=== PATIENT | female | born 1995 | race Caucasian/White ===

== ENCOUNTER → 2017-03-22 | Outpatient (CLI) | payer BC ==
[~2017-03-22] MED LIST: ALBU1AER9 INH; AMPH20TA2 PO; BCPILLS PO; BECL0.3A INH; BUPR-79 PO; DOXY50TA2 PO; FEXO1TAB49 PO; PARO10TA PO; SPIR25TA89 PO
[2017-03-22 17:29] LABS: HEMATOCRIT 34.1 % (37-47); MEAN CORPUSCULAR HEMOGLOBIN 32.2 pg (25-34); MEAN CORPUSCULAR HGB CONC 35.8 g/dl (32-36); MEAN PLATELET VOLUME 9.9 fL (7.4-10.4); PLATELET COUNT 177 K/uL (130-400); RED BLOOD COUNT 3.79 M/uL (4.2-5.4); WHITE BLOOD COUNT 5.86 K/uL (4.8-10.8)
[2017-03-22 17:57] LABS: BASO % 0.5 %; BASO ABS # 0.03 K/uL (0-0.2); COMPLETE YES; EOS % 1.5 %; IG% 0.2 %; LYMPH % 30.7 %; MONO % 6.7 %; NEUT % 60.4 %
[2017-03-22 18:02] LABS: ALT/SGPT 20 U/L (12-78); BLOOD UREA NITROGEN 16 mg/dl (7-18); BUN/CREATININE RATIO 21.9 (10-20); C-REACTIVE PROTEIN 0.43 mg/dl (0-0.29); CARBON DIOXIDE 27 mmol/L (21-32); CHLORIDE 104 mmol/L (98-107); CREATININE 0.73 mg/dl (0.60-1.20); GLUCOSE 79 mg/dl (70-99); POTASSIUM 3.8 mmol/L (3.5-5.1); SODIUM 142 mmol/L (136-145)
[2017-03-22 18:04] LABS: CALCIUM 9.7 mg/dl (8.5-10.1)
[2017-03-22 18:13] LABS: ALB/GLOB RATIO 1.2 (0.9-2); ALKALINE PHOSPHATASE 51 U/L (45-117); AST/SGOT 15 U/L (15-37)
[2017-03-25 22:39] LABS: IGA SERUM 162 mg/dL (81-463); TIS TRANS IGA 1 U/mL (<4)
== END | disposition home or self-care (01) ==
LOC: C.LAB1850 16:35
PROVIDERS: ATTEND Registered Nurse
DX: R19.8 Other specified symptoms and signs involving the digestive system and abdomen (principal); R63.4 Abnormal weight loss

== ENCOUNTER → 2017-06-11 | Day surgery (SDC) | payer BC ==
[2017-06-07 09:49] VITALS: Ht 170.2 cm; Wt 52.3 kg
[~2017-06-11] VITALS: Ht 170.2 cm; Wt 52.3 kg
[~2017-06-11] MED LIST changes: -BECL0.3A INH; +LIDOCAINE HCL 2% 2 ML VIAL (20MG/ML) ONE; +LORAZEPAM INJ 0.5 MG in SYRINGE 0.25 ML IV SCH; +MIDAZOLAM HCL 1 MG/ML 2ML VIAL ONE; -PARO10TA PO; +PROPOFOL IV EMULSION 10 MG/ML 20 ML VIAL IV ONE; +SODIUM CHLORIDE 0.9% 500ML 500 ML IV ONE
--- NOTE | 2017-06-11 08:45 | Endo History and Physical ---
History & Physical Date of Service: Jun 11, 2017. Chief Complaint: Weight loss and abdominal cramping Referring Physician: HI Greene History of Present Illness 21 yo CF who presents for colonoscopy secondary to abdominal cramping and weight loss. Past Surgical History Hx Cardiac Surgery: No Hx Internal Defibrillator: No Hx Pacemaker: No Hx Abdominal Surgery: No Hx of Implantable Prosthesis: No Hx Post-Op Nausea and Vomiting: No Hx Cancer Surgery: No Hx Thoracic Surgery: No Hx Orthopedic: No Hx Urinary Tract Surgery: No Family History None Social History Smoking Status: Never Smoker Hx Substance Use: No Hx Alcohol Use: Yes (OCCASIONAL/SOCIAL) Allergies Coded Allergies: Dust Mite Extract (Verified Allergy, Unknown, respiratory sx, 06/11/17) NO KNOWN DRUG ALLERGIES (Verified Allergy, Unknown, ., 06/07/17) Current Medications Reported Home Medications Medications Dose Route/Sig Max Daily Dose Days Date Category Stormy Allergy (Fexofenadine Hcl) 180 Mg Tab 1 Tab PO DAILY PRN 06/07/17 Reported Control Pills (Miscellaneous) Tab 1 Tab PO QAM 06/07/17 Reported Adderall 20MG (Amphetamine-Dextroamphetamine 20MG) 1 Tab Tab 20 Mg PO TID 06/07/17 Reported Aldactone (Spironolactone) 25 Mg Tab 25 Mg PO QAM 06/07/17 Reported Wellbutrin Sr (Bupropion HCl) 150 Mg Ertab 150 Mg PO QAM 06/07/17 Reported Doxycycline Monohydrate (Doxycycline (Monohydrate)) 50 Mg Tab 1 Tab PO QAM 06/07/17 Reported Proair Hfa (Albuterol) Aers 2 Puff INH Q4 PRN 09/02/14 Reported Vital Signs Weight (Kilograms): 52.27 Height (Feet): 5 Height (Inches): 7 Date Time Temp Pulse Resp B/P (MAP) Pulse Ox O2 Delivery O2 Flow Rate FiO2 06/11/17 08:35 36.8 94 20 115/75 (88) 100 Room Air Physical Exam General Appearance: WD/WN, no apparent distress Respiratory/Chest: Auscultation: breath sounds normal Cardiovascular: Heart Auscultation: RRR Abdomen: Bowel Sounds: normal Inspection & Palpation: soft, non-distended, no tenderness, guarding & rebound Assessment and Plan Assessment: 21 yo CF who presents for colonoscopy secondary to abdominal cramping and weight loss. Plan: Proceed with colonoscopy
--- NOTE | 2017-06-11 09:27 | Discharge Instructions ---
Endoscopy Patient Instructions Date / Procedure(s) Performed Jun 11, 2017. Colonoscopy Allergy Information Coded Allergies: Dust Mite Extract (Verified Allergy, Unknown, respiratory sx, 06/11/17) NO KNOWN DRUG ALLERGIES (Verified Allergy, Unknown, ., 06/07/17) Discharge Date / Findings Jun 11, 2017. Random colon biopsies Internal hemorrhoids Medication Instructions Restart Stopped Medication(s): OK to resume all medications today as prescribed Reported Home Medications Medications Dose Route/Sig Max Daily Dose Days Date Category Stormy Allergy (Fexofenadine Hcl) 180 Mg Tab 1 Tab PO DAILY PRN 06/07/17 Reported Control Pills (Miscellaneous) Tab 1 Tab PO QAM 06/07/17 Reported Adderall 20MG (Amphetamine-Dextroamphetamine 20MG) 1 Tab Tab 20 Mg PO TID 06/07/17 Reported Aldactone (Spironolactone) 25 Mg Tab 25 Mg PO QAM 06/07/17 Reported Wellbutrin Sr (Bupropion HCl) 150 Mg Ertab 150 Mg PO QAM 06/07/17 Reported Doxycycline Monohydrate (Doxycycline (Monohydrate)) 50 Mg Tab 1 Tab PO QAM 06/07/17 Reported Proair Hfa (Albuterol) Aers 2 Puff INH Q4 PRN 09/02/14 Reported Provider Instructions Activity Restrictions - No exercising or heavy lifting for 24 hours. - Do not drink alcohol the day of the procedure. - Do not drive a car or operate machinery until the day after the procedure. - Do not make any important decisions or sign important papers in 24 hours after the procedure. Following Day: - Return to full activity which may include returning to work/school. Diet Start your diet with liquids and light foods (jello, soup, juice, toast). Then eat your usual diet if not nauseated. Treatment For Common After Affects For mild abdominal pain, bloating, or excessive gas: - Rest - Eat lightly - Lie on right side Follow-Up Information Follow-up with DR Omi PARKER as scheduled Anesthesia Information What You Should Know You have had a procedure that required some medicine to reduce anxiety and discomfort. This treatment is called moderate sedation. After receiving the treatment, you may be sleepy, but you will be able to breathe on your own. The effects of the treatment may last for several hours. Follow these instructions along with Activity/Diet recommendations noted above: * Do NOT do anything where dizziness or clumsiness would be dangerous. * Rest quietly at home today, then you can be up and about tomorrow. * Have a responsible person stay with you the rest of today. * You may have had an I.V. today. If so, you may take the dressing off later today. Recommendations Call your doctor if: * Trouble breathing * Continuous vomiting for more than 24 hours * Temperature above 101 degrees * Severe abdominal pain or bloating * Pain not relieved by pain medicine ordered * There is increased drainage or redness from any incision * A large amount of rectal bleeding greater than 2-3 tablespoons. (If you had a polyp/s removed or have hemorrhoids, a small amount of blood - from the rectum is to be expected.) * You have any unanswered questions or concerns. IN THE EVENT OF A SERIOUS EMERGENCY, GO TO THE NEAREST EMERGENCY ROOM Your discharge instructions were prepared by provider Mateo Larry. Patient Instructions Signature Page Sarah Galindo Patient (or Guardian) Signature/Date: I have read and understand the instructions given to me by my caregivers. Caregiver/RN/Doctor Signature/Date: The above-named patient and/or guardian has received patient instructions on this date. + Original Patient Signature Page (only) stays with chart. Please make copy for patient.
--- NOTE | 2017-06-11 09:31 | GI REPORT ---
Procedure Date: 06/11/2017 8:59 AM Procedure: Colonoscopy Indications: Generalized abdominal pain, Weight loss Medicines: Monitored Anesthesia Care Complications: No immediate complications. Estimated Blood Loss: Estimated blood loss: none. Procedure: Pre-Anesthesia Assessment: - Prior to the procedure, a History and Physical was performed, and patient medications and allergies were reviewed. The patient's tolerance of previous anesthesia was also reviewed. The risks and benefits of the procedure and the sedation options and risks were discussed with the patient. All questions were answered, and informed consent was obtained. Prior Anticoagulants: The patient has taken no previous anticoagulant or antiplatelet agents. ASA Grade Assessment: II - A patient with mild systemic disease. After reviewing the risks and benefits, the patient was deemed in satisfactory condition to undergo the procedure. After I obtained informed consent, the scope was passed under direct vision. Throughout the procedure, the patient's blood pressure, pulse, and oxygen saturations were monitored continuously. The scope was introduced through the anus and advanced to the terminal ileum. The colonoscopy was performed without difficulty. The patient tolerated the procedure well. The quality of the bowel preparation was good. The terminal ileum, ileocecal valve, appendiceal orifice, and rectum were photographed. Findings: Non-bleeding internal hemorrhoids were found during retroflexion. The hemorrhoids were small. Several random biopsies were obtained with cold forceps for histology in the entire colon. Impression: - Non-bleeding internal hemorrhoids. - Several random biopsies were obtained in the entire colon. Recommendation: - Resume previous diet. - Continue present medications. - Repeat colonoscopy for surveillance based on pathology results. - Return to primary care physician as previously scheduled. Mateo Larry, 06/11/2017 9:30:40 AM This report has been signed electronically. Note Initiated On: 06/11/2017 8:59 AM I attest to the content of the Intraoperative Record and orders documented therein, exceptions below
[2017-06-11 10:00] VITALS: BP 98/58; PULSE 85; O2SAT 100
--- NOTE | 2017-06-11 10:37 | Anesthesiology Progress Note ---
Anesthesia Post Op Note Date & Time Jun 11, 2017 at 10:37 Vital Signs Pain Intensity: 0 Vital Signs Past 12 Hours Date Time Temp Pulse Resp B/P (MAP) Pulse Ox O2 Delivery O2 Flow Rate FiO2 06/11/17 10:00 85 20 98/58 (71) 100 Room Air 06/11/17 09:45 88 20 115/75 (88) 100 Room Air 06/11/17 09:30 90 20 96/75 (82) 98 Room Air 06/11/17 08:35 36.8 94 20 115/75 (88) 100 Room Air Notes Mental Status: alert / awake / arousable, participated in evaluation Pt Amnestic to Procedure: Yes Nausea / Vomiting: adequately controlled Pain: adequately controlled Airway Patency, RR, SpO2: stable & adequate BP & HR: stable & adequate Hydration State: stable & adequate Anesthetic Complications: no major complications apparent
== END | disposition home or self-care (01) ==
LOC: C.GI 08:13
PROVIDERS: ATTEND Internal Medicine
DX: K64.8 Other hemorrhoids (principal); R10.84 Generalized abdominal pain; R63.4 Abnormal weight loss

== ENCOUNTER 2017-12-29 20:16 | Emergency (ER) | payer BC ==
[~2017-12-29] VITALS: Ht 170.2 cm; Wt 53.6 kg
[~2017-12-29 20:16] MED LIST changes: -LIDOCAINE HCL 2% 2 ML VIAL (20MG/ML) ONE; -LORAZEPAM INJ 0.5 MG in SYRINGE 0.25 ML IV SCH; -MIDAZOLAM HCL 1 MG/ML 2ML VIAL ONE; -PROPOFOL IV EMULSION 10 MG/ML 20 ML VIAL IV ONE; -SODIUM CHLORIDE 0.9% 500ML 500 ML IV ONE
[2017-12-29 20:25] VITALS: BP 161/88; PULSE 143; TEMP 36.6; O2SAT 100; Ht 170.2 cm; Wt 53.6 kg
== END 2017-12-29 22:52 | disposition left against medical advice (07) ==
LOC: C.EDB 20:17
DX: R07.9 Chest pain, unspecified (principal); R00.0 Tachycardia, unspecified